=== PATIENT | female | born 1955 | race Caucasian/White ===

== ENCOUNTER 2018-04-09 16:52 | Emergency (ER) | payer OTHER, SELFPAY ==
[2018-04-09] MEDS ORDERED: Dexamethasone 10 MG/ML VIAL ONE (17:30)
== END 2018-04-09 17:50 | disposition home or self-care (01) ==
LOC: SCSER 16:52
DX: K05.10 Chronic gingivitis, plaque induced (principal)
CPT/HCPCS: 96372; J1100

== ENCOUNTER 2019-09-21 09:45 | Outpatient (CLI) | payer MEDICARE, MEDICAID ==
--- NOTE | 2019-09-21 11:08 | ULT ---
US Gallbladder RUQ HISTORY: Right upper quadrant pain COMPARISON: None. FINDINGS: Images including the heart show fluid surrounding the heart. Subtle echogenicity associated with the anterior gallbladder wall shows ringdown artifact. No internal stones or gallbladder wall thickening. Patient was not tender over the gallbladder fossa at the time of the exam. Common duct is 0.3 cm. Liver is diffusely echogenic without focal mass or intrahepatic biliary dilata tion. No free fluid in the abdomen evident. Small right renal cyst incidentally noted. IMPRESSION: Adenomyomatosis of the gallbladder wall. No evidence of stones or biliary obstruction. Hepatosteatosis. Pericardial effusion.
== END 2019-09-21 09:46 | disposition home or self-care (01) ==
LOC: BICULT 09:45
PROVIDERS: ATTEND Physician Assistant Medical
DX: K21.9 Gastro-esophageal reflux disease without esophagitis (principal); R10.13 Epigastric pain; R19.4 Change in bowel habit; D13.5 Benign neoplasm of extrahepatic bile ducts; I31.3 Pericardial effusion (noninflammatory); K76.0 Fatty (change of) liver, not elsewhere classified
CPT/HCPCS: 76705

== ENCOUNTER 2019-09-21 14:56 | Outpatient (CLI) | payer MEDICARE, MEDICAID ==
--- NOTE | 2019-09-21 15:59 | RAD ---
TWO VIEW CHEST: HISTORY: Bronchitis. FINDINGS: Lungs are clear. No infiltrate. Heart and mediastinum unremarkable. Vasculature normal. Osseous s tructures unremarkable. IMPRESSION: No acute process. POS: C
== END 2019-09-21 14:57 | disposition home or self-care (01) ==
LOC: BICRAD 14:56
PROVIDERS: ATTEND Family Medicine
DX: J44.0 Chronic obstructive pulmonary disease with (acute) lower respiratory infection (principal); J20.9 Acute bronchitis, unspecified
CPT/HCPCS: 71046

== ENCOUNTER 2019-12-10 18:02 | Emergency (ER) | payer MEDICARE, MEDICAID ==
[2019-12-10] MEDS ORDERED: Aspirin Chewable 81 MG TAB ONE (18:36)
--- NOTE | 2019-12-10 18:40 | RAD ---
AP CHEST: History: Dizziness. Chest pain. FINDINGS: Lungs appear clear. No infiltrate. Heart size upper normal. Vasculature normal. IMPRESSION: No acute process. POS: [facility]
[2019-12-10 18:44] LABS: #Eosinphils 0.2 thou/uL (0.0-0.7); #Lymphocytes 2.1 thou/uL (1.20-3.40); #Monocytes 0.7 thou/uL (0.11-0.59); #Neutrophils 5.5 thou/uL (1.40-6.50); %Basophils 0.5 % (0.0-1.0); %Lymphocytes 24.6 % (21.0-51.0); %Monocytes 7.9 % (0.0-10.0); %Neutrophils 65.1 % (42.0-75.0); Mean Corpuscular HGB CONC 33.9 g/dL (32.0-36.0); Mean Corpuscular Hemoglobin 32.5 pg (27.0-31.0); Mean Corpuscular Volume 95.8 fL (78.0-98.0); Mean Platelet Volume 6.7 fL (7.4-10.4); Platelet Count 311 thou/uL (130-400); RBC Distribution Width 11.7 % (11.5-14.5); Red Blood Cell (RBC) Count 4.01 mill/uL (4.20-5.40); White Blood Cell (WBC) Count 8.5 thou/uL (4.8-10.8)
[2019-12-10 18:53] LABS: ALT (SGPT) 31 U/L (8-55); AST (SGOT) 27 U/L (5-34); Albumin 4.2 g/dL (3.4-4.8); Alkaline Phosphatase 82 U/L (40-110); Anion Gap 14 mmol/L (10-20); BUN (Urea Nitrogen) 12 mg/dL (9.8-20.1); Bilirubin, Total 0.3 mg/dL (0.2-1.2); Calc. Creatinine Clearance 0 mL/min (70-130); Calcium 9.1 mg/dL (7.8-10.44); Carbon Dioxide 21 mmol/L (23-31); Chloride 104 mmol/L (98-107); Estimated GFR-MDRD 60; Globulin 2.7 g/dL (2.4-3.5); Glucose 106 mg/dL (80-115); Lipase 13 U/L (8-78); Potassium 4.4 mmol/L (3.5-5.1); Protein, Total 6.9 g/dL (6.0-8.3); Sodium 135 mmol/L (136-145)
[2019-12-10 21:56] LABS: Troponin I Less than 0.010 ng/mL (< 0.028)
== END 2019-12-10 22:58 | disposition home or self-care (01) ==
LOC: ERS 18:02
DX: R07.89 Other chest pain (principal); R42 Dizziness and giddiness; F32.9 Major depressive disorder, single episode, unspecified; Z87.891 Personal history of nicotine dependence; Z79.899 Other long term (current) drug therapy
CPT/HCPCS: 36415; 71045; 80053; 83690; 83880; 84484; 85025; 93005; 96360

== ENCOUNTER 2019-12-25 06:05 | Outpatient (CLI) | payer MEDICARE, MEDICAID, OTHER ==
--- NOTE | 2019-12-25 14:15 | RAD ---
PA AND LATERAL VIEWS CHEST: HISTORY: Preoperative evaluation. COMPARISON: 12/10/2019. FINDINGS: The heart size is normal. The aorta is tortuous. The lungs are expanded without focal areas of cons olidation, pneumothoraces, or pleural effusions. No acute osseous abnormalities are seen. IMPRESSION: No acute process. POS: [facility]
[2019-12-25 14:33] LABS: Hemoglobin 13.5 g/dL (12.0-16.0); Mean Corpuscular HGB CONC 33.7 g/dL (32.0-36.0); Mean Corpuscular Hemoglobin 32.7 pg (27.0-31.0); Mean Corpuscular Volume 97.2 fL (78.0-98.0); Mean Platelet Volume 6.7 fL (7.4-10.4); Platelet Count 351 thou/uL (130-400); RBC Distribution Width 11.5 % (11.5-14.5); Red Blood Cell (RBC) Count 4.11 mill/uL (4.20-5.40); White Blood Cell (WBC) Count 8.2 thou/uL (4.8-10.8)
[2019-12-25 14:49] LABS: Anion Gap 13 mmol/L (10-20); BUN (Urea Nitrogen) 14 mg/dL (9.8-20.1); Calc. Creatinine Clearance 0 mL/min (70-130); Calcium 9.8 mg/dL (7.8-10.44); Carbon Dioxide 26 mmol/L (23-31); Chloride 103 mmol/L (98-107); Estimated GFR-MDRD 64; Glucose 82 mg/dL (80-115); Potassium 3.8 mmol/L (3.5-5.1); Sodium 138 mmol/L (136-145)
--- NOTE | 2019-12-25 17:06 | EKG ---
Test Reason : Blood Pressure : / mmHG Vent. Rate : 091 BPM Atrial Rate : 091 BPM P-R Int : 140 ms QRS Dur : 070 ms QT Int : 348 ms P-R-T Axes : 046 053 -07 degrees QTc Int : 428 ms Normal sinus rhythm Low voltage QRS Cannot rule out Anterior infarct , age undetermined Abnormal ECG When compared with ECG of 10-DEC-2019 18:12, Minimal criteria for Anterior infarct are now Present Nonspecific T wave abnormality, worse in Inferior leads Confirmed by DR. Lore RUBALCAVA ([id number]) on 12/25/2019 5:05:55 PM Referred By: IRENE Confirmed By:DR. Lore RUBALCAVA
== END 2019-12-25 06:06 | disposition home or self-care (01) ==
LOC: LABBT 06:05
PROVIDERS: ATTEND Thoracic Surgery (Cardiothoracic Vascular Surgery)
DX: Z01.818 Encounter for other preprocedural examination (principal); I31.3 Pericardial effusion (noninflammatory)
CPT/HCPCS: 71046; 80048; 85027; 93005; 93010

== ENCOUNTER 2019-12-25 13:30 | Inpatient (IN) | payer MEDICARE, MEDICAID ==
[2019-12-26] MEDS ORDERED: Midazolam HCl 2 mg/2 ml Vial ONE (07:13)
[2019-12-26] MEDS ORDERED: Fentanyl 100 MCG/2 ML VIAL ONE ×4 (07:13→09:23)
[2019-12-26] MEDS ORDERED: Bupivacaine PF 0.5% 30 ML VIAL ONE (07:42)
[2019-12-26] MEDS ORDERED: Lidocaine 1% w/Epinephrine 1:100K 20 ML VIAL ONE (07:42)
[2019-12-26] MEDS ORDERED: SUGAMMADEX SODIUM 500 MG/5 ML VIAL ONE (08:06)
[2019-12-26 08:36] LABS: Sodium 141 mmol/L (136-145)
--- NOTE | 2019-12-26 08:43 | OP ---
DATE OF PROCEDURE: 12/26/2019 PREOPERATIVE DIAGNOSIS: Chronic symptomatic pericardial effusion. POSTOPERATIVE DIAGNOSIS: Chronic symptomatic pericardial effusion. PROCEDURE PERFORMED: Pericardial window with biopsy for diagnosis. ANESTHESIA: General endotracheal, Dr. Giovanny Delgado. ESTIMATED BLOOD LOSS: Minimal. DRAINS: A 19-Algerian Anibal. SPECIMENS: 1. Pericardium for pathology. 2. Pericardial fluid for chemistry, cytology, and culture. DESCRIPTION OF PROCEDURE: After consent was obtained, the patient was brought to the operating room and placed in supine position on the operating table. Appropriate central line and monitors were placed. Chest was prepped and draped in usual sterile fashion. The patient was then placed under general anesthesia. Skin and subcutaneous tissues were anesthetized with 0.5% Marcaine with epinephrine. Skin incision was made and dissection down through the linea alba was obtained with electrocautery. The subxiphoid space was entered bluntly. The pericardium was then grasped with an Allis clamp. Pericardium was retracted inferiorly and sharply entered. Fluid was sent for the above studies. Approximately 400 mL of clear yellow fluid was evacuated. A 19-Algerian Anibal drain was then placed. The small specimen of pericardium was taken and sent for routine examination. Fascia was then reapproximated with #1 Vicryl. Wounds were closed in layers and Dermabond applied to the skin. Sterile dressings were applied. The patient tolerated the procedure well. She was awakened, extubated, and transferred to the recovery room in stable condition. She will be kept overnight for drain teaching and then send home tomorrow. Job ID: [id number]
[2019-12-26] MEDS ORDERED: PROPOFOL 200 MG/20 ML VIAL ONE (09:50)
[2019-12-26] MEDS ORDERED: Rocuronium Bromide 10 MG/ML (10ML VIAL) ONE (09:50)
[2019-12-26] MEDS ORDERED: Succinylcholine Chloride 20 MG/ML 10 ml SYRINGE FS ONE (09:50)
[2019-12-26] MEDS ORDERED: Ondansetron ODT 4 MG TAB PO PRN (10:17)
[2019-12-26] MEDS ORDERED: Bupropion 100 MG SR TAB PO SCH (10:30)
[2019-12-26] MEDS: traMADol HCl 50 MG TAB PO PRN ×3 (11:23→23:45)
[2019-12-26 11:34] VITALS: BMI 23.4
[2019-12-26] MEDS: Fentanyl 100 MCG/2 ML VIAL SLOW IVP PRN ×2 (12:32→17:07)
[2019-12-26] MEDS: Ketorolac Tromethamine 30 MG/ML VIAL IVP SCH ×2 (18:40→23:45)
[2019-12-26] MEDS: Bupropion 100 MG SR TAB PO SCH (20:40)
[2019-12-26] MEDS: traZODone HCl 50 MG TAB PO SCH (20:40)
[2019-12-26] MEDS: Amitriptyline HCl 25 MG TAB PO SCH (20:41)
[2019-12-26] MEDS ORDERED: Non-Formulary Item 1 EACH (Amitriptyline Hcl [Amitriptyline Hcl] 50 MG) PO SCH (21:00)
[2019-12-27] MEDS: Ketorolac Tromethamine 30 MG/ML VIAL IVP SCH ×4 (05:44→23:33)
[2019-12-27] MEDS: traMADol HCl 50 MG TAB PO PRN (05:45)
[2019-12-27] MEDS: Bupropion 100 MG SR TAB PO SCH ×2 (08:46→21:10)
--- NOTE | 2019-12-27 08:57 | RAD ---
PORTABLE CHEST 1 VIEW: DATE: 12/27/2019. TIME: 5:28 AM. HISTORY: Post pericardial window. FINDINGS/IMPRESSION: Comparison is made with the exam of 12/25/2019. The heart size is stable. The aorta is tortuous. Small bilateral pleural effusions may be present. No lobar consolidation, pneumothoraces, or talita pulmonary edema are identified. POS: [facility]
[2019-12-27] MEDS: traZODone HCl 50 MG TAB PO SCH (21:10)
[2019-12-27] MEDS: Amitriptyline HCl 25 MG TAB PO SCH (21:10)
[2019-12-28] MEDS: Ketorolac Tromethamine 30 MG/ML VIAL IVP SCH ×2 (06:27→14:48)
[2019-12-28] MEDS: Bupropion 100 MG SR TAB PO SCH (09:41)
[2019-12-28 11:49] VITALS: BP 136/89; TEMP 97.8
--- NOTE | 2019-12-28 12:26 | DIS ---
DATE OF ADMISSION: 12/26/2019 DATE OF DISCHARGE: 12/28/2019 DIAGNOSIS: Pericardial effusion. PROCEDURE PERFORMED: Pericardial window. DESCRIPTION OF HOSPITAL STAY: Ms. Mittal was admitted for diagnostic pericardial window. She had 400 mL of clear straw-colored fluid, which has shown no malignant cells within the fluid and no malignancy within the pericardium. The fluid is transudative with white blood cells, but no bacteria. Cultures have been negative. She is being discharged to home today with a drain in place. She is to follow up with me on Wednesday for possible drain removal. Discharge medications are unchanged. Job ID: [id number]
--- NOTE | 2019-12-29 08:44 | PQF ---
DEVI HERRERA CHARLES H MD [id number] [facility]267 [id number] CLINICAL DOCUMENTATION CLARIFICATION FORM: POST DISCHARGE Addendum to original discharge summary date: ____ Late entry note date: __ DATE: 12/29/2019 ATTN: Arturo Crowley Please exercise your independent, professional judgment in responding to the clarification form. Clinical indicators are provided on the bottom of this form for your review In your clinical opinion based on clinical findings below, can you please clarify the clinical significance of Tourtous Aorta on Radiology report if: Please check appropriate box(s): [ ] Associated Diagnosis: Tourtous Aorta [ ] Abnormal radiological findings only [ ] Other diagnosis [x ] Unable to determine In addition, please specify: Present on Admission (POA): [ ] Yes [ ] No [ ] Unable to determine For continuity of documentation, please document condition throughout progress notes and discharge summary. Thank You. CLINICAL INDICATORS - SIGNS / SYMPTOMS / LABS Vital signs 12/25 BP 138/95, Pulse 99, Resp 18 Chest X-ray 12/26 Impression: the aorta is tortoues. Small bilateral pleural effusion RISK FACTORS Operative report p1 12/25 64 year-old Female Operative report p1 12/25 Chronic symptomatic pericardial effusion Anesthesia p2 12/24 Former Smoker TREATMENTS: OCT 31 IV Toradol 30mg MAR 12/25 Ultram 50 mg oral Pericardial window with Biopsy 12/25 Dr Espinoza Chest X-ray 12/26 (This form is maintained as a part of the permanent medical record) 2014 [employer]. All Rights Reserved [email or web address]
== END 2019-12-28 15:01 | disposition home or self-care (01) | DRG 272 ==
LOC: SURG A 12-26 05:36 → 2NO 12-26 09:57
PROVIDERS: ADMIT Thoracic Surgery (Cardiothoracic Vascular Surgery); ATTEND Thoracic Surgery (Cardiothoracic Vascular Surgery)
PROC: 02BN0ZX Excision of Pericardium, Open Approach, Diagnostic (ICD-10-PCS; principal; 2019-12-26)
PROC: 0W9D0ZX Drainage of Pericardial Cavity, Open Approach, Diagnostic (ICD-10-PCS; 2019-12-26)
DX: I31.3 Pericardial effusion (noninflammatory) (principal); F32.9 Major depressive disorder, single episode, unspecified; Z88.8 Allergy status to other drugs, medicaments and biological substances; Z09 Encounter for follow-up examination after completed treatment for conditions other than malignant neoplasm; Z91.040 Latex allergy status; Z87.891 Personal history of nicotine dependence; Z79.899 Other long term (current) drug therapy
CPT/HCPCS: 71045; 71046; 80048; 82042; 84295; 85027; 87070; 87205; 88112; 88305; 93005; J0690; J1885; J2250; J2704; J3010; Q0162; S0020

== ENCOUNTER 2020-08-26 13:39 | Emergency (ER) | payer MEDICARE, MEDICAID ==
[2020-08-26 14:24] LABS: #Eosinphils 0.1 thou/uL (0.0-0.7); #Monocytes 0.5 thou/uL (0.11-0.59); #Neutrophils 2.2 thou/uL (1.40-6.50); %Basophils 0.8 % (0.0-1.0); %Eosinophils 2.9 % (0.0-10.0); %Lymphocytes 41.3 % (21.0-51.0); %Monocytes 9.8 % (0.0-10.0); %Neutrophils 45.2 % (42.0-75.0); Hemoglobin 12.9 g/dL (12.0-16.0); Mean Corpuscular HGB CONC 34.1 g/dL (32.0-36.0); Mean Corpuscular Hemoglobin 32.7 pg (27.0-31.0); Mean Platelet Volume 6.9 fL (7.4-10.4); Platelet Count 245 thou/uL (130-400); RBC Distribution Width 11.4 % (11.5-14.5); Red Blood Cell (RBC) Count 3.95 mill/uL (4.20-5.40); White Blood Cell (WBC) Count 4.8 thou/uL (4.8-10.8)
--- NOTE | 2020-08-26 14:26 | RAD ---
XR Chest 1 View Portable History: Diarrhea and weakness Comparison: Chest radiograph February 03, 2020 Findings: Mild scarring both lung bases. Chronic blunting left lateral costophrenic sulcus. No pneumo thorax. No acute osseous abnormality. New left upper lobe airspace opacity. Impression: New left upper lobe airspace opacity concerning for pneumonia. Follow-up recommended.
[2020-08-26 14:50] LABS: ALT (SGPT) 23 U/L (8-55); AST (SGOT) 27 U/L (5-34); Alkaline Phosphatase 77 U/L (40-110); BUN (Urea Nitrogen) 11 mg/dL (9.8-20.1); Bilirubin, Total 0.3 mg/dL (0.2-1.2); CK (CPK) 62 U/L (29-168); Calc. Creatinine Clearance 0 mL/min (70-130); Calcium 8.8 mg/dL (7.8-10.44); Carbon Dioxide 24 mmol/L (23-31); Globulin 3.1 g/dL (2.4-3.5); Glucose 101 mg/dL (80-115); Protein, Total 7.1 g/dL (6.0-8.3)
[2020-08-26 14:51] LABS: Chloride 105 mmol/L (98-107); Potassium 3.7 mmol/L (3.5-5.1); Sodium 137 mmol/L (136-145)
[2020-08-26 15:27] LABS: Anion Gap 12 mmol/L (10-20)
[2020-08-26] MEDS ORDERED: Acetaminophen 500 MG TAB ONE (17:17)
[2020-08-26] MEDS ORDERED: Dexamethasone 4 mg/ml Vial ONE (17:17)
[2020-08-26] MEDS ORDERED: Azithromycin 500 MG in Sodium Chloride 0.9% 250 ML 250 ML IVPB ONE (17:30)
[2020-08-27 02:10] LABS: SARS-CoV-2 MS2 Positive; SARS-CoV-2 N Gene Negative; SARS-CoV-2 S Gene Negative; SARS-CoV-2 by NAA Not Detected (NotDetected); SARS-CoV-2 orf1ab Negative
== END 2020-08-26 20:30 | disposition home or self-care (01) ==
LOC: ERS 13:39
DX: J18.9 Pneumonia, unspecified organism (principal); Z20.828 Contact with and (suspected) exposure to other viral communicable diseases; Z87.891 Personal history of nicotine dependence; Z79.899 Other long term (current) drug therapy
CPT/HCPCS: 71045; 80053; 82550; 84484; 85025; 93005; 96365; 96375; 99284; U0003; 36415; 87635; J0456; J1100; J7050

== ENCOUNTER 2021-02-06 13:25 | Outpatient (CLI) | payer MEDICARE, MEDICAID | END 2021-02-06 13:26 | disposition home or self-care (01) | LOC: BICMAMMO 13:25 | PROVIDERS: ATTEND Family Medicine | DX: Z12.31 Encounter for screening mammogram for malignant neoplasm of breast (principal); Z98.82 Breast implant status; Z91.89 Other specified personal risk factors, not elsewhere classified; Z80.3 Family history of malignant neoplasm of breast | CPT/HCPCS: 77063; 77067 ==

== ENCOUNTER 2023-05-05 13:05 | Outpatient (CLI) | payer MEDICARE, MEDICAID | END 2023-05-05 13:06 | disposition home or self-care (01) | LOC: BICMAMMO 13:05 | PROVIDERS: ATTEND Family Medicine | DX: Z12.31 Encounter for screening mammogram for malignant neoplasm of breast (principal); Z13.820 Encounter for screening for osteoporosis; M81.0 Age-related osteoporosis without current pathological fracture; M85.89 Other specified disorders of bone density and structure, multiple sites; Z98.82 Breast implant status; Z80.3 Family history of malignant neoplasm of breast | CPT/HCPCS: 77063; 77067; 77080 ==

== ENCOUNTER 2023-05-05 14:20 | Outpatient (CLI) | payer MEDICARE, MEDICAID | END 2023-05-05 14:21 | disposition home or self-care (01) | LOC: RAD 14:20 | PROVIDERS: ATTEND Family Medicine | DX: I11.0 Hypertensive heart disease with heart failure (principal); R07.9 Chest pain, unspecified | CPT/HCPCS: 71046 ==

== ENCOUNTER 2023-05-17 12:42 | Emergency (ER) | payer MEDICARE, MEDICAID ==
[~2023-05-17 12:42] MED LIST: Iopamidol-370 76% 500 ML MDV (1 ML CHARGE) ONE
[2023-05-17 14:08] LABS: #Eosinphils 0.2 thou/uL (0.0-0.7); #Monocytes 0.4 thou/uL (0.11-0.59); #Neutrophils 3.5 thou/uL (1.40-6.50); %Basophils 0.7 % (0.0-1.0); %Eosinophils 3.1 % (0.0-10.0); %Lymphocytes 29.7 % (21.0-51.0); Hematocrit 41.6 % (36.0-47.0); Hemoglobin 13.8 g/dL (12.0-16.0); Mean Corpuscular HGB CONC 33.2 g/dL (32.0-36.0); Mean Corpuscular Volume 96.5 fl (78.0-98.0); Mean Platelet Volume 9.3 fL (7.4-10.4); Platelet Count 300 10x3/uL (130-400); RBC Distribution Width 12.7 % (11.5-14.5); Red Blood Cell (RBC) Count 4.31 mill/uL (4.20-5.40); White Blood Cell (WBC) Count 5.9 10x3/uL (4.8-10.8)
[2023-05-17 14:26] LABS: Anion Gap 13 mmol/L (10-20); BUN (Urea Nitrogen) 13 mg/dL (9.8-20.1); Calc. Creatinine Clearance 0 mL/min (70-130); Carbon Dioxide 28 mmol/L (23-31); Chloride 102 mmol/L (98-107); Estimated GFR 65; Glucose 169 mg/dL (80-115); Potassium 4.2 mmol/L (3.5-5.1); Sodium 139 mmol/L (136-145)
== END 2023-05-17 15:27 | disposition home or self-care (01) ==
LOC: ERS 12:42
DX: R06.02 Shortness of breath (principal); Z87.891 Personal history of nicotine dependence
CPT/HCPCS: 71275; 80048; 85025; 93005; Q9967

== ENCOUNTER 2024-09-05 05:45 | Day surgery (SDC) | payer MEDICARE, MEDICAID ==
[2024-09-04 10:28] VITALS: BMI 22.6
[~2024-09-05 05:45] MED LIST changes: +EPINEPHrine 0.3 MG in Ophthalmic Irrigation Solution 500 ML IRR SCH; -Iopamidol-370 76% 500 ML MDV (1 ML CHARGE) ONE
[2024-09-05] MEDS ORDERED: PHENYLephrine 2.5% Ophth Soln 15 ml Bottle ONE (06:07)
[2024-09-05] MEDS ORDERED: Cyclopentolate 1% Opth Drop 2 ML BOT ONE (06:07)
[2024-09-05] MEDS ORDERED: Midazolam HCl 2 mg/2 ml Vial ONE (07:00)
[2024-09-05] MEDS ORDERED: fentaNYL PF 100 MCG/2 ML SYRINGE ONE (07:00)
[2024-09-05] MEDS ORDERED: Lidocaine 1% PF 5 ML VIAL ONE ×2 (07:00→07:54)
[2024-09-05] MEDS ORDERED: PROPOFOL 20 ML ONE (07:00)
[2024-09-05] MEDS ORDERED: Ondansetron PF 4 MG/2 ML Vial ONE (07:52)
[2024-09-05] MEDS ORDERED: Triamcinolone 40 MG/ML VIAL ONE (07:54)
[2024-09-05] MEDS ORDERED: Indocyanine Green 25 MG/10 ML VIAL ONE (07:54)
[2024-09-05] MEDS ORDERED: Bupivacaine 0.75% 10 ML VIAL ONE (07:54)
[2024-09-05] MEDS ORDERED: Lidocaine 4% PF 5 ML AMP ONE (07:54)
[2024-09-05] MEDS ORDERED: CEFAZOLIN 1 GM VIAL ONE (07:54)
== END 2024-09-05 09:18 | disposition home or self-care (01) ==
LOC: SDC 05:45
PROVIDERS: ATTEND Ophthalmology Retina Specialist
PROC: 08T53ZZ Resection of Left Vitreous, Percutaneous Approach (ICD-10-PCS; principal; 2024-09-05)
PROC: 08NF3ZZ Release Left Retina, Percutaneous Approach (ICD-10-PCS; 2024-09-05)
DX: H35.342 Macular cyst, hole, or pseudohole, left eye (principal); Z91.040 Latex allergy status; Z88.8 Allergy status to other drugs, medicaments and biological substances; Z79.899 Other long term (current) drug therapy
CPT/HCPCS: 67042; J0171; J2250; J2405; J2704; J0690; J3301; J3490

== ENCOUNTER 2025-05-04 13:17 | Outpatient (CLI) | payer OTHER, MEDICAID ==
[~2025-05-04 13:17] MED LIST changes: -EPINEPHrine 0.3 MG in Ophthalmic Irrigation Solution 500 ML IRR SCH; +Iopamidol 370 76% 100 ML VIAL ONE
[2025-05-04 14:02] LABS: Estimated GFR - POC 60.0
== END 2025-05-04 13:18 | disposition home or self-care (01) ==
LOC: CT 13:17
PROVIDERS: ATTEND Physician Assistant Medical
DX: R10.13 Epigastric pain (principal); R19.7 Diarrhea, unspecified; R14.0 Abdominal distension (gaseous); K55.1 Chronic vascular disorders of intestine; R93.2 Abnormal findings on diagnostic imaging of liver and biliary tract
CPT/HCPCS: 36415; 74177; 82565; Q9967